=== PATIENT | female | born 1945 | race African-American/Black ===

== ENCOUNTER 2016-12-22 22:42 | Emergency (ER) | payer OTHER, MEDICAID ==
[2016-12-22 22:53] VITALS: TEMP 98.1; O2SAT 96
--- NOTE | 2016-12-22 23:07 | CPEKG ---
Heart Rate: 72 RR Interval: 833 P-R Interval: 176 QRSD Interval: 80 QT Interval: 392 QTC Interval: 430 P [place]: 61 QRS [place]: 74 T Wave [place]: 59 EKG Severity - ABNORMAL ECG - EKG Impression: SINUS RHYTHM EKG Impression: CONSIDER LEFT VENTRICULAR HYPERTROPHY Electronically Signed By: Lenora Kellogg 23-Dec-2016 00:18:17
--- NOTE | 2016-12-23 00:05 | EDPHY ---
H & P Stated Complaint: pt says she began having hrt palpitations/nause after leaving [facility] Time Seen by Provider: 12/22/16 23:24 HPI/ROS: HPI The patient presents with palpitations and nausea which are now improved. [facility] and became quite upset because she felt that she was kicked out unnecessarily. She then felt palpitations lasting for a few seconds while she was upset. She also had nausea. She now denies any complaints and feels well. She would like a glass of water. She came here on the bus.. REVIEW OF SYSTEMS Constitutional: No fever, no chills. Eyes: No discharge. ENT: No sore throat. Cardiovascular: No chest pain, no palpitations. Respiratory: No cough, no shortness of breath. Gastrointestinal: No abdominal pain, no vomiting. Genitourinary: No hematuria. Musculoskeletal: No back pain. Skin: No rashes. Neurological: No headache. PMHx: Healthy Soc Hx: Homeless, new to [place] PHYSICAL General Appearance: Alert, no distress Eyes: Pupils equal and round no pallor or injection ENT, Mouth: Mucous membranes moist Respiratory: There are no retractions, lungs are clear to auscultation Cardiovascular: Regular rate and rhythm Gastrointestinal: Abdomen is soft and non-tender, no masses, bowel sounds normal Neurological: A&O, moves all extremities Skin: Warm and dry, no rashes Musculoskeletal: Neck is supple non tender Extremities: symmetrical, full range of motion Psychiatric: Patient is oriented X 3, there is no agitation Source: Patient - Medical/Surgical History Hx Asthma: No Hx Chronic Respiratory Disease: No Hx Diabetes: No Hx Cardiac Disease: No Hx Renal Disease: No Hx Cirrhosis: No Hx Alcoholism: No Hx HIV/AIDS: No Hx Splenectomy or Spleen Trauma: No Other PMH: removal of ovary - Social History Smoking Status: Never smoked Constitutional: Initial Vital Signs Temperature (C) 36.7 C 12/22/16 22:47 Heart Rate 80 12/22/16 22:47 Respiratory Rate 18 12/22/16 22:47 Blood Pressure 131/87 H 12/22/16 22:47 O2 Sat (%) 96 12/22/16 22:47 O2 Delivery Mode Room Air Allergies/Adverse Reactions: No Known Allergies Allergy (Unverified 12/22/16 22:53) Home Medications: Medication Instructions Recorded NK [No Known Home Meds] 12/22/16 Medical Decision Making - Diagnostics EKG Interpretation: EKG: Complete interpretation has been separately recorded in the [employer] archive. Summary impression: Normal sinus rhythm Differential Diagnosis: This is a 71-year-old healthy female who is homeless, she [facility] today and had transient palpitations and nausea, now resolved. She denies any complaint currently. Differential diagnosis includes anxiety attack, SVT, electrolyte disturbance, anemia. EKG was performed in the emergency room and was normal. She was able to tolerate p.o. without difficulty. I offered her basic laboratory testing however she refused. She would like to be discharged. I doubt any serious pathology as a cause of her symptoms, I feel this is most likely related to anxiety in the setting of being kicked out of the [facility]. Departure - Departure Disposition: Home, Routine, Self-Care Clinical Impression: Palpitations, Nausea Condition: Good Instructions: Palpitations (ED) Additional Instructions: [facility] has walk-in appointments for the homeless at the following days/locations. No appointment is needed. Monday 8-10 am @ [facility] 11 AM-1 PM @ [facility] Monday 8-10:30 AM @ [facility] Monday 8-10 AM @ [facility] 2-4 PM @ [facility] Monday 8-10 AM @ [facility] Referrals: [facility] [Outside] - As per Instructions
[2016-12-23 00:33] VITALS: BP 128/76; PULSE 85; RESP 16
== END 2016-12-23 00:44 | disposition home or self-care (01) ==
DX: R00.2 Palpitations (principal); R11.0 Nausea